=== PATIENT | female | born 1950 | race Caucasian/White ===

== ENCOUNTER 2017-01-11 17:15 | Emergency (ER) | payer MEDICARE, BC ==
[2017-01-11 17:27] VITALS: BP 133/76
--- NOTE | 2017-01-11 18:27 | EDM.PDOC ---
ED HPI GENERAL MEDICAL PROBLEM - General Chief Complaint: Lower Extremity Injury/Pain Stated Complaint: RT ANKLE INJURY Time Seen by Provider: 01/11/17 17:27 Source of Information: Reports: Patient History Limitations: Reports: No Limitations - History of Present Illness INITIAL COMMENTS - FREE TEXT/NARRATIVE: The patient was walking and she stepped off a curb she did not realize was there. She inverted her right ankle. She was able to walk to her car and come here. She denies any other injury. Onset: Today Duration: Minutes: Location: Reports: Lower Extremity, Right (ankle) Quality: Reports: Sharp Severity: Moderate Improves with: Reports: None Worsens with: Reports: Movement Context: Reports: Other (She stepped off a curb and inverted her ankle) Associated Symptoms: Reports: No Other Symptoms Right Feet Pain Score (Numeric/FACES): 7 - Related Data Allergies Allergy/AdvReac Type Severity Reaction Status Date / Time Penicillins Allergy Rash Verified 01/11/17 17:27 Home Meds: Home Meds Acetaminophen [Tylenol Extra Strength] 1,000 mg PO Q8H 01/11/17 [History] Hydrocodone/Acetaminophen [Hydrocodon-Acetaminophen 5-325] 1 - 2 each PO Q6HR PRN #20 tablet 01/11/17 [Rx] Levothyroxine [Synthroid] 1 tab PO DAILY 01/11/17 [History] buPROPion [Wellbutrin] 1 tab PO DAILY 01/11/17 [History] Past Medical History Psychiatric History: Reports: Depression Endocrine/Metabolic History: Reports: Hypothyroidism Social & Family History - Tobacco Use Smoking Status *Q: Never Smoker - Caffeine Use Caffeine Use: Reports: None - Recreational Drug Use Recreational Drug Use: No Review of Systems - Review of Systems Review Of Systems: See Below Constitutional: Reports: No Symptoms Eyes: Reports: No Symptoms Ears: Reports: No Symptoms Nose: Reports: No Symptoms Mouth/Throat: Reports: No Symptoms Respiratory: Reports: No Symptoms Cardiovascular: Reports: No Symptoms GI/Abdominal: Reports: No Symptoms Musculoskeletal: Reports: Other (Right ankle pain) ED EXAM, GENERAL - Physical Exam Exam: See Below Exam Limited By: No Limitations General Appearance: Alert, No Apparent Distress Ears: Normal External Exam Nose: Normal Inspection Head: Atraumatic, Normocephalic Neck: Normal Inspection Respiratory/Chest: No Respiratory Distress Extremities: Other (Moderate edema to the lateral malleolus and pain upon palpation. Good sensation and pulses distally.) Course - Vital Signs Last Recorded V/S: Last Vital Signs Temp 98.3 F 01/11/17 17:25 Pulse 73 01/11/17 17:25 Resp 18 01/11/17 17:25 BP 133/76 01/11/17 17:25 Pulse Ox 100 01/11/17 17:25 - Orders/Labs/Meds Orders: Active Orders 24 hr Category Date Time Status Ankle Min 3V Rt [CR] Stat Exams 01/11/17 17:35 Taken - Re-Assessments/Exams Free Text/Narrative Re-Assessment/Exam: 01/11/17 18:30 Her x-ray shows distal fibular fracture. I will get her in a walking boot and crutches. Departure - Departure Time of Disposition: 18:35 Disposition: Home, Self-Care 01 Condition: good Clinical Impression: Fracture of distal fibula Qualifiers: Encounter type: initial encounter Fracture type: closed Fracture morphology: unspecified fracture morphology Laterality: right Qualified Code(s): S82.831A - Other fracture of upper and lower end of right fibula, initial encounter for closed fracture - Discharge Information Prescriptions: Hydrocodone/Acetaminophen [Hydrocodon-Acetaminophen 5-325] 1 - 2 each PO Q6HR PRN #20 tablet PRN Reason: Pain Forms: ED Department Discharge Additional Instructions: Ice your ankle for 15 minutes every other hour while awake for 2 days. Elevate your ankle as much as you can for 2 days. Do not put any weight on your ankle. Follow up with orthopedic surgery in [place] next week. Please return if you are worse. - My Orders Last 24 Hours: My Active Orders 01/11/17 17:35 Ankle Min 3V Rt [CR] Stat - Assessment/Plan Last 24 Hours: My Active Orders 01/11/17 17:35 Ankle Min 3V Rt [CR] Stat
--- NOTE | 2017-01-13 08:03 | CR ---
Right ankle: Three views of the right ankle were obtained utilizing portable technique. Nondisplaced lateral malleolus fracture is seen. Minimal avulsion fracture seen off the tip of the medial malleolus. No additional fracture is appreciated. Bony structures are osteopenic. Soft tissue swelling is identified laterally. Impression: 1. Nondisplaced lateral malleolus fracture with soft tissue swelling. 2. Minimal avulsion fracture off the medial malleolus. Diagnostic code #3
== END 2017-01-11 19:00 | disposition home or self-care (01) ==
LOC: JD.ED 17:15
DX: S82.64XA Nondisplaced fracture of lateral malleolus of right fibula, initial encounter for closed fracture (principal); S82.51XA Displaced fracture of medial malleolus of right tibia, initial encounter for closed fracture; F32.9 Major depressive disorder, single episode, unspecified; E03.9 Hypothyroidism, unspecified; Z79.899 Other long term (current) drug therapy; Z88.0 Allergy status to penicillin; W18.41XA Slipping, tripping and stumbling without falling due to stepping on object, initial encounter
CPT/HCPCS: 73610-26-RT; 73610-RT; 99283; 99284